=== PATIENT | female | born 1950 | race Caucasian/White ===

== ENCOUNTER → 2020-10-10 09:58 | Outpatient (CLI) | payer OTHER, SELFPAY ==
--- NOTE | ~2020-10-10 | DEXA_ITS ---
Bone Density Report Name: Carole Crowley Age: 69 Sex: Female Ethnicity: White Date of : 1950 Indication: osteopenia; parental hip fracture; height loss; postmenopausal Referring Provider: Marisol Curtis Study: Bone densitometry was performed. Exam Date: October 10, 2020 Accession number: [id number] Bone Density: Region BMD T-score Z-score Classification AP Spine (L1-L4) 0.854 -1.8 0.5 Osteopenia Femoral Neck (Left) 0.622 -2.0 -0.1 Osteopenia Total Hip (Left) 0.807 -1.1 0.5 Osteopenia Femoral Neck (Right) 0.607 -2.2 -0.3 Osteopenia Total Hip (Right) 0.776 -1.4 0.2 Osteopenia Total Hip Mean 0.792 -1.3 0.4 Osteopenia World Health Organization criteria for BMD impression classify patients as: Normal (T-score at or above -1.0), Osteopenia (T-score between -1.0 and -2.5), or Osteoporosis (T-score at or below -2.5). 10-year Fracture Risk(1): Major Osteoporotic Fracture 20% Hip Fracture 7.8% Reported Risk Factors: [place] (), Neck BMD=0.607, BMI=21.8, parental fracture (1) FRAX(R) Version 3.08. Fracture probability calculated for an untreated patient. Fracture probability may be lower if the patient has received treatment. Previous Exams: Region Exam Age BMD T-score BMD Change BMD Change Date g/cm2 vs Baseline vs Previous AP Spine(L1-L4) 10/10/2020 69 0.854 -1.8 0.059* 0.059* 06/30/2017 66 0.795 -2.3 Total Hip(Left) 10/10/2020 69 0.807 -1.1 0.040* 0.040* 06/30/2017 66 0.767 -1.4 Total Hip(Right) 10/10/2020 69 0.776 -1.4 0.024 0.024 06/30/2017 66 0.752 -1.6 *Denotes significance at 95% confidence level, LSC for AP Spine = 0.022 g/cm2, LSC for Total Hip = 0.027 g/cm2 Clinical Information Provided by Patient: Parent has had a hip fracture Has used the following medications: Prolia (i.e. denosumab) Patient maximum height was 61 Menopause Age: 52 Drinks caffeinated beverages Onset of menses at age 11 Number of children 2 Impression: The patient has low bone mass, based on the Right Femoral Neck T-score. The patient has an estimated ten-year risk of hip fracture of 7.8% and an estimated ten-year risk of major fracture of 20%, based on the WHO FRAX algorithm. The patient has risk factors, including: parental hip fracture. No significant bone loss was observed. Discussion: BONE DENSITY IS LOW AT ONE OR MORE SKELETAL SITES. THE PATIENT'S BMD AND CLINICAL RISK
== END ==
PROVIDERS: PCP Internal Medicine
DX: M81.0 Age-related osteoporosis without current pathological fracture (principal); M85.88 Other specified disorders of bone density and structure, other site; M85.852 Other specified disorders of bone density and structure, left thigh; M85.851 Other specified disorders of bone density and structure, right thigh
CPT/HCPCS: 77080

== ENCOUNTER 2021-03-11 16:24 | Outpatient (CLI) | payer OTHER, SELFPAY ==
--- NOTE | 2021-03-11 16:43 | ECG_ITS ---
Measurements Intervals [place] Rate: 64 P: 59 IL: 154 QRS: 43 QRSD: 81 T: 32 QT: 363 QTc: 376 Interpretive Statements SINUS RHYTHM NORMAL ECG Electronically Signed On 03-11-2021 20:13:22 CDT by Charan Izquierdo D.O.
== END 2021-03-11 16:25 | disposition home or self-care (01) ==
LOC: ANHCARD 16:33
PROVIDERS: PCP Internal Medicine
DX: Z01.810 Encounter for preprocedural cardiovascular examination (principal)
CPT/HCPCS: 93005

== ENCOUNTER → 2023-07-06 10:54 | Outpatient (CLI) | payer OTHER, SELFPAY ==
--- NOTE | ~2023-07-06 | DEXA_ITS ---
Bone Density Report Name: GARCÍA GAMING Age: 72 Sex: Female Ethnicity: White Date of : 1950 Indication: osteopenia; parental hip fracture; height loss;postmenopausal Referring Provider: Chung, Lynda Pollack Study: Bone densitometry was performed. Exam Date: July 06, 2023 Accession number: [id number] Bone Density: Region BMD T-score Z-score Classification AP Spine (L1-L4) 0.856 -1.7 0.6 Osteopenia Femoral Neck (Left) 0.651 -1.8 0.3 Osteopenia Total Hip (Left) 0.785 -1.3 0.5 Osteopenia Femoral Neck (Right) 0.611 -2.1 -0.1 Osteopenia Total Hip (Right) 0.767 -1.4 0.3 Osteopenia Total Hip Mean 0.776 -1.4 0.4 Osteopenia World Health Organization criteria for BMD impression classify patients as: Normal (T-score at or above -1.0), Osteopenia (T-score between -1.0 and -2.5), or Osteoporosis (T-score at or below -2.5). 10-year Fracture Risk(1): Major Osteoporotic Fracture 23% Hip Fracture 14% Reported Risk Factors: [place] (), Neck BMD=0.611, BMI=21.4, parental fracture (1) FRAX(R) Version 3.08. Fracture probability calculated for an untreated patient. Fracture probability may be lower if the patient has received treatment. Previous Exams: Region Exam Age BMD T-score BMD Change BMD Change Date g/cm2 vs Baseline vs Previous AP Spine(L1-L4) 07/06/2023 72 0.856 -1.7 0.061* 0.003 10/10/2020 69 0.854 -1.8 0.059* 0.059* 06/30/2017 66 0.795 -2.3 Total Hip(Left) 07/06/2023 72 0.785 -1.3 0.018 -0.022 10/10/2020 69 0.807 -1.1 0.040* 0.040* 06/30/2017 66 0.767 -1.4 Total Hip(Right) 07/06/2023 72 0.767 -1.4 0.015 -0.009 10/10/2020 69 0.776 -1.4 0.024 0.024 06/30/2017 66 0.752 -1.6 *Denotes significance at 95% confidence level, LSC for AP Spine = 0.022 g/cm2, LSC for Total Hip = 0.027 g/cm2 Clinical Information Provided by Patient: Parent has had a hip fracture Has used the following medications: Prolia (i.e. denosumab), Calcium, QUIT PROLIA IN SEPTEMBER 2022 Patient maximum height was 61.0 Menopause Age: 52 Drinks caffeinated beverages Onset of menses at age 11 Number of children 2 Impression: The patient has low bone mass, based on the Right Femoral Neck T-score. The patient has an estimated ten-year risk of hip fracture of 14% and an estimated ten-year risk of major fracture of 23%,
== END ==
PROVIDERS: PCP Internal Medicine; Visit Provider Internal Medicine
DX: Z78.0 Asymptomatic menopausal state (principal); M85.88 Other specified disorders of bone density and structure, other site; M85.852 Other specified disorders of bone density and structure, left thigh; M85.851 Other specified disorders of bone density and structure, right thigh
CPT/HCPCS: 77080

== ENCOUNTER 2023-10-15 15:36 | Emergency (ER) | payer OTHER, SELFPAY ==
--- NOTE | 2023-10-15 15:44 | ED.DENTAL ---
HPI - Dental/Oral General Chief complaint: Skin/Abscess/Foreign Body Stated complaint: cold sore, facial neuralgia Time Seen by Provider: 10/15/23 15:40 Source: patient Mode of arrival: ambulatory Limitations: no limitations History of Present Illness HPI Narrative: Twin is a 72-year-old female patient presenting to the clinic today with complaints of possible cold sore. She reports scented some a going on for a few days and she has been taking Valtrex that she has had prescribed but it is over 2 years old and she does not feel as though it is working. She is here requesting a refill of the Valtrex that she cannot see her doctor until Tuesday. History of shingles and oral herpes infection-is starting to have some discomfort to right side of her mouth as well as near her right eye. Related Data Home Medications Medication Instructions Recorded Confirmed fenofibrate nanocrystallized 145 145 mg PO DAILY 05/11/19 10/15/23 mg tablet (Tricor) Allergies Allergy/AdvReac Type Severity Reaction Status Date / Time Penicillins Allergy Severe Swelling Verified 10/15/23 16:01 of Lip/Tongue/Throat erythromycin base Allergy Intermediate VOMITING Verified 10/15/23 16:01 Sulfa (Sulfonamide Allergy Intermediate Vomiting Verified 10/15/23 16:01 Antibiotics) tramadol Allergy Intermediate Vomiting Verified 10/15/23 16:01 Review of Systems Review of Systems: Pertinent positives per HPI. Patient denies any fever, chills, headache, visual changes, dizziness, cough, runny nose, sore throat, shortness of breath, chest pain, palpitations, nausea, vomiting, diarrhea, constipation, abdominal pain, or any urinary issues. PMFSH Past Medical History Medical History Constipation Hypercholesterolemia Hypothyroidism Postmenopausal Urinary tract infection Comments At the time of my signature, I reviewed and agree with the nursing past medical, surgical, social, and family history. There is no relevant family history pertinent to the patient complaint. Exam Narrative: General: Well-developed, well nourished, in no apparent distress Head: Normocephalic, atraumatic Eyes: Pupils equally round and reactive to light bilaterally, EOM intact, sclera and conjunctive clear, no discharge, lids normal Ears: TMs intact and clear, ear canals clear, no drainage, grossly hearing normal. Nose: Nares patent, no discharge, no inflammation, no sinus tenderness. Mouth: Oropharynx without lesions or masses, good dentition, MMM. Cold sore to the right lower lip-tender to palpation without induration Neck: Supple, trachea midline, no enlargement of anterior or posterior cervical nodes, no thyroid masses or goiter palpable. Cardio: Regular rate and rhythm, s1 and s2 normal, no murmur appreciated. Resp: Clear to auscultation bilaterally anteriorly and posteriorly, no rhonchi, rales, wheezing or rubs Integumentary: [place], warm, and dry, intact without lesion, no rashes. Course Course Emergency Course: Portions of this record may have been created with voice recognition software. Level of Care: Express Care Visit Vital Signs Vital signs: Vital signs reviewed MDM - Dental/Oral MDM Narrative Medical decision making narrative: At the time of visit patient is resting comfortably on the exam table. Patient appears to be nontoxic. Plan: I suspect patient has a oral herpes infection. No sign herpes zoster this time but she is having herpetic like pain. Will send in prescription for Valtrex 1 g every 8 hours for 7 days and have her follow-up with her primary care doctor. She was instructed to go the emergency room if symptoms got worse. Supportive measures were discussed with the patient and they voiced understanding discharge instructions and agrees to treatment plan. Return precautions reviewed Differential Diagnosis Differential diagnosis: Likely gingival abscess, denta
[2023-10-15 15:52] VITALS: BP 179/96; PULSE 83; RESP 16; TEMP 37.1; O2SAT 100
== END 2023-10-15 16:04 | disposition home or self-care (01) ==
PROVIDERS: Emergency Provider Nurse Practitioner Family; PCP Internal Medicine
DX: B00.1 Herpesviral vesicular dermatitis (principal); E78.00 Pure hypercholesterolemia, unspecified; E03.9 Hypothyroidism, unspecified
CPT/HCPCS: 99213; G0463

== ENCOUNTER 2025-01-25 16:02 | Emergency (ER) | payer OTHER, SELFPAY ==
--- OUTSIDE RECORDS SUMMARY | 2025-01-25 16:05 | XMS_ITS | Clinical Summary ---
Author Organization [facility] Address [address] [place] [address] Phone Care Team Providers Care Instructor Of Nursing Name Role Phone Lynda Wilkes DO Primary Care Provider [phone]- [phone] Allergies Active Allergy Reactions Criticality Noted Date Comments Penicillins Swelling Low 06/27/2009 Medications TRIAMCINOLONE ACETONIDE (NASACORT NA) Administer in each nostril. Active Calcium Carbonate-Vitam in D2 1,200-400 mg-unit Oral Cap Take by mouth. Activ e levothyroxine (SYNTHROID) 75 mcg Oral tablet Take 75 mcg by mouth daily. Active SIMVASTATIN ORAL Take by mouth. Activ e OMEGA-3 FATTY ACIDS (FISH OIL ORAL) Take by mouth. Activ e MAGNESIUM CITRATE ORAL Take by mouth. Ac tive coenzyme Q10 (CO Q-10) Oral Cap Take 10 mg by mouth daily. Active Active Problems Patient Care Coordination No te Formatting of this note migh t be different from the original. Primary Care: Lynda Wilkes DO (General) Referring Provider: Lynda Wilkes DO [address] [place] [address] Other: Dr Angeline Anguiano Problem Noted Date Diagnosed Date Diffuse cystic mastopathy 11/07/2012 MVP (mitral valve prolapse) Asthma Hay fever Hyperlipidemia Family History Medical History Relation Name Comments Lung Cancer Father age 70's Stroke Maternal Grandfather Stroke Maternal Grandmother Cancer Mother skin Heart Disease Mother Breast Cancer Neg Hx Ovarian Cancer Neg Hx Uterine Cancer Neg Hx Relation Name Status Comments Father Maternal Grandfather Maternal Grandmother Mother Social History Tobacco Use Types Packs/Day Years Used Date Smoking Tobacco: Never Smokeless Tobacco: Never Tobacco Cessation:Counseling Given: No Alcohol Use Standard Drinks/Week Comments No 0 (1 standard drink = 0.6 oz pur e alcohol) Comments No Sex and Gender Information Value Date Recorded Sex Assigned at Not on file 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 Gender Identity Not on file Sexual Orientation Not on file Occupation Industry Job Start Date Job End Date Not on file Not on file Not on file Not on file Last Filed Vital Signs Vital Sign Reading Time Taken Comments Blood Pressure 118/75 02/03/2015 10:22 AM CDT Pulse 61 02/03/2015 10:22 AM CDT Temperature - - Respiratory Rate - - Oxygen Saturation - - Inhaled Oxygen Concentration - - Weight 49 kg (108 lb) 02/03/2015 10:22 AM CDT Height 154.9 cm (5' 1) 02/03/2015 10:22 AM CDT Body Mass Index 20.41 02/03/2015 10:22 AM CDT Plan of Treatment Health Maintenance Due Date Last Done Comments DTAP/TDAP/TD VACCINES (1 - Tdap) 11/02/1967 PNEUMOCOCCAL VACCINE 50+ YEARS (1 of 2 - PCV) 11/01/18 66 ZOSTER VACCINE (1 of 2) 1998 OSTEOPOROSIS SCREENING 10/11/2019 10/10/2014 RSV VACCINE (60+ or ) (1 - 1-dose 75+ series) 11/02/2023 INFLUENZA VACCINE (#1) 2025 Procedures Procedure Name Priority Date/Time Associated Diagnosis Comments XR DEXA BONE DENSITY 2 SITES Routine 10/10/2014 from Last 3 Months or Most Recently Relevant to Health Maintenance Results * XR DEXA BONE DENSITY 2 SITES (10/10/2014) Anatomical Region Laterality Modality Other us Lynda Wilkes DO DIAGNOSTIC IMAGING ORDERAB LES Edited Result - Final from Last 3 Months or Most Recently Relevant to Health Maintenance Insurance [facility] MCR Care Teams Instructor Of Nursing Relationship Specialty Start Date End Date Lynda Wilkes DO [address] [place] [address] PCP - General Internal Medicine 01/28/14
--- OUTSIDE RECORDS SUMMARY | 2025-01-25 16:05 | XMS_ITS | Clinical Summary ---
Author Organization [facility] Address [address] [place] [address] Care Team Providers Care Clinical Rehabilitation Aide Name Role Phone Lynda Wilkes DO Primary Care Provider +1- [phone] Allergies Active Allergy Reactions Criticality Noted Date Comments Penicillins Anaphylaxis High 05/19/2021 Shrimp Rash Medium 05/19/2021 Medications vitamin B complex (B COMPLEX 1 ORAL) 1 tablet Acti ve omega 0-gks-gal-fish oil (Fish OiL) 100-160-1,000 mg capsule Take 1 tablet by mouth Active MAGNESIUM CITRATE ORAL Take 1 Dose by mouth Active Lactobac no.41/Bifidobact no.7 (PROBIOTIC-10 ORAL) Take 1 tablet by mouth Active fenofibrate nanocrystallized (TRICOR) 145 mg tablet 1 tablet 1 Active Prolia 60 mg/mL syringe Inject 60 mg under the skin 1 Active mupirocin (BACTROBAN) 2 % ointment 1 Active valACYclovir (VALTREX) 1 gram tablet 1 Active Active Problems Problem Noted Date Diagnosed Date COVID 05/18/2021 Surgical History Surgery Date Site/Laterality Comments BREAST BIOPSY Left Social History Tobacco Use Types Packs/Day Years Used Date Smoking Tobacco: Never Assessed Comments No Sex and Gender Information Value Date Recorded Sex Assigned at Not on file Legal Sex Female 1:37 AM SCOREKEEPER Gender Identity Not on file Sexual Orientation Not on file Obstetrics History Para Term AB IAB SAB Ectopic Multiple Livin g Live Births 2 2 2 Date Outcome GA Total Labor Labor/2nd/3rd Weight Sex Type Anes PTL Luisa A1 A5 Name Clin Term Term Last Filed Vital Signs Vital Sign Reading Time Taken Comments Blood Pressure 149/76 05/19/2021 10:40 AM SCOREKEEPER Pulse 61 05/19/2021 10:40 AM SCOREKEEPER Temperature 36.5 C (97.7 F) 05/19/2021 10:40 AM SCOREKEEPER Respiratory Rate 20 05/19/2021 10:40 AM SCOREKEEPER Oxygen Saturation 100% 05/19/2021 10:40 AM SCOREKEEPER Inhaled Oxygen Concentration - - Weight 50.3 kg (111 lb) 05/19/2021 8:44 AM SCOREKEEPER Height 152.4 cm (5') 05/19/2021 8:44 AM SCOREKEEPER Body Mass Index 21.68 05/19/2021 8:44 AM SCOREKEEPER Plan of Treatment Health Maintenance Due Date Last Done Comments Depression Screening 1950 Fall Risk Assessment 1950 Hepatitis C Screening 1950 DTaP/Tdap/Td Vaccine (1 - Tdap) 11/02/1959 Hepatitis B Screening 1966 Well Visit 65+ 2013 Pneumococcal vaccine 65+ (2 of 2 - PPSV23, PCV20, or PCV21) 09/06/2016 07/12/2016 Osteoporosis Screening-Bone Density Scan 10/10/2016 10/10/2014, 10/10/2014 Covid-19 Vaccine (3 - Modern a risk series) 08/29/2020 08/01/2020, 07/03/2020 Influenza Vaccine (#1) 2025 , 04/04/2019, 02/20/2018, Additional history exists Zoster Vaccine Completed 06/26/2018, 04/22/2018 Breast Cancer Screening-Mammogram Discontinued 02/02/2024, 01/12/2023, 10/09/2021, Additional history exists Procedures Procedure Name Priority Date/Time Associated Diagnosis Comments SCREENING MAMMOGRAM BILATERAL W PEDRO Schedule Routine, Read Routine (OP Routine) 02/02/2024 9:14 AM CDT Screening mammogram, encounter for DEXA AXIAL SKELETON BONE DENSITY 1 OR MORE SITES Routine 10/10/2014 1:56 PM CDT from Last 3 Months or Most Recently Relevant to Health Maintenance Results * Screening Mammogram Bilateral W Pedro (02/02/2024 9:14 AM CDT) Anatomical Region Laterality Modality Breast Bilateral Mammography Impressions 02/02/2024 9:42 AM CDT BI-RADS ATLAS category (overall): 2 - Benign There is no mammographic evidence of malignancy. A 1 year screening mammogram is recommended. The patient has been or will be contacted. We recommend annual screening mammography for women at average risk of breast cancer beginning at age 40, based on guidelines of the [employer] (ACR Practice Parameter for the Performance of Screening and Diagnostic Mammography) and [employer]. For women with and elevated risk of breast cancer, please refer to the ACR Practice Parameter for specific screening recommendations. The patient will be entered into a reminder system with a target due date of 1 year for her next screening exam. Narrative 02/02/2024 9:42 AM CDT Screening Mammogram Bilateral W Pedro: 02/02/24 The study was acquired using full field digital technology and interpreted from soft copy. 2D digital mammographic views, as well as 3D digital tomosynthesis were performed in the CC and MLO projections. CLINICAL: Screening mammogram, encounter for. No relevant medical history has been documented for this patient. No known family history of breast cancer. COMPARISONS: 02/04/2023 Diagnostic Mammogram Left W Pedro 01/12/2023 Screening Mammogram Bilateral W Pedro 10/09/2021 Screening Mammogram Bilateral W Pedro 06/16/2020 Screening Mammogram Bilateral W Pedro 02/08/2019 Screening Mammogram Bilateral W Pedro 01/09/2018 Screening Mammogram 2D Bilateral 12/23/2016 Screening Mammogram Bilateral W Pedro 09/30/2016 Diagnostic Mammogram Left W Pedro 09/30/2016 US Breast Left Complete 12/01/2015 Screening Mammogram Bilateral W Pedro 10/21/2014 Screening Mammogram Bilateral W Pedro 10/10/2014 SCREENING MAMMOGRAM BILATERAL W PEDRO BREAST TISSUE: The breasts are extremely dense, which lowers the sensitivity of mammography. FINDINGS: There are unchanged benign microcalcifications in both breasts. Benign postoperative architectural distortion in the left breast. There is no new suspicious finding in either breast on mammogram. us Self Screening Mammogram IMG MAMMO PROCEDURES Fi nal Result * Dexa Axial Skeleton Bone Density 1 or 2 Site (10/10/2014 1:56 PM CDT) Anatomical Region Laterality Modality Body N/A Radiographic Kendra ging 10/10/2014 1:56 PM CDT Impressions 10/10/2014 3:49 PM CDT Osteoporosis (lowest T-score -2.8 at the left femoral neck). THIS IS AN ELECTRONICALLY VERIFIED REPORT 10/10/2014 3:45 PM: Maurizio Ibarra M.D. Maurizio Ibarra M.D. MD: 03:45 PM 03:45 PM [facility] [EOD] Narrative 10/10/2014 3:49 PM CDT EXAMINATION: Bone Density Study (DEXA) HISTORY: Post menopausal woman with clinical concern for low bone mineral density. COMPARISON: None available TECHNIQUE: Dual-energy X-ray absorptiometry of the lumbar spine and left hip was performed. FINDINGS: Lumbar spine (from L1 through L4): The bone mineral density is 0.841 gm / cm sq. The T-score is -1 point. The percentage of young normal mean is 80%. Total Left Hip: The bone mineral density is 0.774 gm / cm sq. The T-score is -1.4. The percentage of young normal mean is 82%. Left Femoral Neck: The bone mineral density is 0.543 g/cm sq. The T-score is -2.8. The percentage of young normal mean is 64%. Procedure Note Provider, MD Vijay - 10/28/2020 EXAMINATION: Bone Density Study (DEXA) HISTORY: Post menopausal woman with clinical concern for low bone mineral density. COMPARISON: None available TECHNIQUE: Dual-energy X-ray absorptiometry of the lumbar spine and lefthip was performed. FINDINGS: Lumbar spine (from L1 through L4): The bone mineral density is 0.841 gm / cm sq. The T-score is -1 point. The percentage of young normal mean is 80%. Total Left Hip: The bone mineral density is 0.774 gm / cm sq. The T-score is -1.4. The percentage of young normal mean is 82%. Left Femoral Neck: The bone mineral density is 0.543 g/cm sq. The T-score is -2.8. The percentage of young normal mean is 64%. IMPRESSION: Osteoporosis (lowest T-score -2.8 at the left femoral neck). THIS IS AN ELECTRONICALLY VERIFIED REPORT 10/10/2014 3:45 PM: Maurizio Ibarra M.D. Maurizio Ibarra M.D. MD: 03:45 PM 03:45 PM [facility] [EOD] Lynda Wilkes DO IMG DXA PROCEDURES Final R esult from Last 3 Months or Most Recently Relevant to Health Maintenance Insurance [facility] Care Teams Clinical Rehabilitation Aide Relationship Specialty Start Date End Date Lynda Wilkes DO PCP - General 01/22/19
--- OUTSIDE RECORDS SUMMARY | 2025-01-25 16:05 | XMS_ITS | Encounter Summary ---
Author Organization [facility] Address [address] [place] [address] Care Team Providers Care R&D Engineer Name Role Phone Patti Mejia MD Primary Care Provider Encounter Details Date Type Department Care Team (Late st Contact Info) Description 10/01/2024 Lab Requisition [facility] - DermPath Lab [address], [place] [id number] Tunde Lyle MD [facility] DERMATOLOGY [address] [place] [phone] Neoplasm of uncertain behavior of skin Social History Tobacco Use Types Packs/Day Years Used Date Smoking Tobacco: Never Assessed Comments Unknown Sex and Gender Information Value Date Recorded Sex Assigned at Not on file Legal Sex Female 7: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 Gender Identity Not on file Sexual Orientation Not on file documented as of this encounter Plan of Treatment Not on file documented as of this encounter Procedures Procedure Name Priority Date/Time Associated Diagnosis Comments DERMATOPATHOLOGY Routine 09/28/2024 9:04 AM CDT Neoplasm of uncertain behavior of skin documented in this encounter Results * DERMATOPATHOLOGY (09/28/2024 9:04 AM CDT) Case Report Dermatopathology Report Case: [id number] Authorizing Provider: Tunde Lyle MD Collected: 09/28/2024 09:04 AM Ordering Location: [facility] - Received: 10/02/2024 06:50 AM DermPath Lab Pathologist: Letty Georges MD Specimen: Skin, right upper cutaneous lip 2:47 PM CDT DERMATOPATHOLOGY LABORATORY Final Diagnosis Specimen A. SKIN, right upper cutaneous lip: HYPERPLASTIC (HYPERTROPHIC) ACTINIC KERATOSIS ARISING IN A BENIGN VERRUCOUS KERATOSIS (L57.0) 2:47 PM CDT DERMATOPATHOLOGY LABORATORY at 1447 CDT Clinical History Verruca Vulgaris vs SCC 2:47 PM CDT DERMATOPATHOLOGY LABORATORY Gross Description Specimen A: Received is one formalin filled container labeled with the patient's name and designated right upper cutaneous lip. The specimen consists of a shave biopsy measuring 4x4x2 mm. Jar 0. 2:47 PM CDT DERMATOPATHOLOGY LABORATORY Microscopic Description Specimen A. SKIN, right upper cutaneous lip: There is hyperkeratosis alternating with parakeratosis. There is epidermal hyperplasia with disorderly maturation of keratinocytes with nuclear pleomorphism confined to the lower half of the epidermis. There is central hyperkeratosis, papillomatosis, hypergranulosis, and acanthosis. 2:47 PM CDT DERMATOPATHOLOGY LABORATORY Disclaimer An external and internal positive and negative controls are appropriate for the histochemical, immunohistochemical and immunofluorescence stain(s) in this case (if any), except where stated explicitly. The performance characteristics of the stain(s) cited in this report were developed and its performance characteristic determined by the Dermatopathology Laboratory at [facility], directed by Dr. Milana Tapia. These tests need not be, and therefore are not, approved by the [place] Food and Drug Administration. The tests are used for clinical purposes. Billing Codes Specimen Charges Stain Charges 13989 1 2:47 PM CDT DERMATOPATHOLOGY LABORATORY Embedded Images 2:47 PM CDT DERMATOPATHOLOGY LABORATORY Pathology/Cytolo gy TISSUE SPECIMEN FROM SKIN / Unknown 09/28/2024 9:04 AM CDT 10/02/2024 6:50 AM CDT us Tunde Lyle MD LAB - PATHOLOGY/CYTOLOGY [facility] Final Result DERMATOPATHOLOGY LABORATORY [facility] - Department of Dermatology [facility] [address] [place] [address], [address] [phone] documented in this encounter Visit Diagnoses Diagnosis Neoplasm of uncertain behavior of skin documented in this encounter Care Teams R&D Engineer Relationship Specialty Start Date End Date Patti Mejia MD PCP - General 08/20/08 documented as of this encounter
--- OUTSIDE RECORDS SUMMARY | 2025-01-25 16:05 | XMS_ITS | Clinical Summary ---
Author Organization [facility] Address [address] [place] [address] Care Team Providers Care Customer Trainer Name Role Phone Royal Juarez DO Primary Care Provider Encounters Date Type Department Care Team Description 01/11/2025 10:45 AM CDT Telephone [facility] [address] [address] Royal Juarez DO Holter Monitor 01/08/2025 Orders Only [facility] [address] [address] Royal Juarez DO from Last 3 Months Social History Tobacco Use Types Packs/Day Years Used Date Smoking Tobacco: Never Assessed Comments Unknown Sex and Gender Information Value Date Recorded Sex Assigned at Female 10/22/2024 9:48 AM CDT 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 Gender Identity Not on file Sexual Orientation Not on file Plan of Treatment Health Maintenance Due Date Last Done Comments Hepatitis C 1968 Annual Medicare Wellness Visit 2013 Pneumococcal Vaccine: 50+ Years (2 of 2 - PPSV23) 07/12/2017 07/12/2016 DTaP, Tdap and Td Vaccines ( 2 - Td or Tdap) 03/09/2021 03/09/2011 RSV Immunization or 60+ Years (1 - 1-dose 75+ series) 11/02/2023 COVID-19 Vaccine (3 - 2023-2 5 season) 2024 08/01/2020, 07/03/2020 Dexa Scan (General) Completed 10/10/2014, 10/10/2014, 10/10/2014 Zoster Vaccines Completed 06/26/2018, 04/22/2018 Meningococcal B Vaccine Aged Out No l onger eligible based on patient's age to complete this topic Meningococcal Vaccine Aged Out No daly ariadna eligible based on patient's age to complete this topic RSV Immunizations Under 20 Months Aged Out No longer eligible b ased on patient's age to complete this topic Procedures Procedure Name Priority Date/Time Associated Diagnosis Comments XTRNL ECG REC<48 HRS RECORDING SCAN A/R R&I Routine 01/16/2025 3:35 PM CDT Palpitations from Last 3 Months Results * Short Term Holter 24 or 48 Hours (01/16/2025 3:35 PM CDT) Narrative [facility] - 01/16/2025 3:35 PM CDT [image] [place] [id number] RISK CONTROL CONSULTANT REPORT PATIENT NAME: Carole Crowley : 1950 DATE OF TESTIN01/13/2025 until 01/15/2025 TYPE OF MONITOR: 48 Hour Holter PCP: ROYAL JUAREZ DO INTERPRETING RODEO CLOWN: MAUREEN SINGLETARY M.D. INDICATION: Palpitations FINDINGS: Carole Crowley underwent monitoring for a total of 48 hours, of which 1 days, 22 hours and 25 minutes or 97% was considered diagnostic. Baseline rhythm: The baseline rhythm was normal sinus rhythm with heart rates ranging between 59 and 125 beats per minute, with average rate of 74 beats per minute. 0% of the time was spent in bradycardia. 3% of the time was spent in tachycardia. Sinus node function: Sinus node function was normal with no evidence of severe bradycardia or pauses longer than 3 seconds. A-V conduction: A-V conduction was normal with no evidence of significant A-V block. Atrial arrhythmias: There were rare PACs, a total of 77 PACs over 48 hours, which accounted for less than 1% of total heartbeats. 1 episodes of supraventricular tachycardia with the longest lasting 2.3 seconds or 4 beats at a rate of 140 bpm. Atrial fibrillation was not observed. Atrial flutter was not observed. Ventricular arrhythmias: There were rare PVCs, a total of 33 PVCs over 48 hours which accounted for less than 1% of total heart beats. No ventricular tachycardia was observed. Symptoms: The patient reported no symptoms. 1 manually triggered event demonstrated sinus rhythm at 78 bpm with artifact. SUMMARY: Sinus rhythm at an average of 74 bpm was noted. Rare PACs with a <1 % burden seen. 1 episode of SVT lasting 2.3 seconds seen Rare PVCs with a <1 % burden noted. No symptoms were recorded. 1 manually triggered event demonstrated sinus rhythm at 78 bpm. us Royal Juarez DO PROCEDURES Final Result [facility] from Last 3 Months Insurance [employer] Care Teams Customer Trainer Relationship Specialty Start Date End Date Royal Juarez DO [address] [place] [phone] PCP - General INTERNAL MEDICINE 04/24/24
--- OUTSIDE RECORDS SUMMARY | 2025-01-25 16:05 | XMS_ITS | Clinical Summary ---
Author Organization [facility] Address [address] [place] [address] Care Team Providers Care Press Tender Name Role Phone Patti Mejia MD Primary Care Provider [phone] Source Comments [facility],non-owned Affiliates and Associated Physician Practices is amultiple site organization consisting of ambulatory clinics and hospital sitesin [place], [place], [place] and [place]. This disclosure is being madepursuant to the Care Everywhere program and may not contain all information available regarding this patient. 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 Gender Identity Not on file Sexual Orientation Not on file Plan of Treatment Health Maintenance Due Date Last Done Comments BONE DENSITY TESTING 1950 MEDICARE AWV 12 MONTHS 1950 HEPATITIS C SCREENING 10/28/1966 DTAP/TDAP/TD VACCINES (1 - Tdap) 11/02/1967 PNEUMOCOCCAL VACCINE 50+ (1 of 1 - PCV) 1998 ZOSTER VACCINE (1 of 2) 1998 Respiratory Syncytial Virus (RSV) Vaccine Pt: or over 60 yrs (1 - 1-dose 75+ series) 11/02/2023 COVID-19 VACCINE (1 - 2023-2 5 season) 2024 DEPRESSION SCREENING 06/13/2024 INFLUENZA VACCINE (#1) 2025 HEPATITIS B VACCINE Aged Out No longe r eligible based on patient's age to complete this topic HIB VACCINE Aged Out No longer eligi ble based on patient's age to complete this topic HPV VACCINE Aged Out No longer eligi ble based on patient's age to complete this topic MENINGOCOCCAL (Group B) VACC INE SHARED DECISION-MAKING Aged Out No longer eligibl e based on patient's age to complete this topic MENINGOCOCCAL GROUPS A/C/Y/W VACCINE Aged Out No longer eligible b ased on patient's age to complete this topic Insurance E[employer]ENCE MEDICARE ESSENCE MEDICARE Care Teams Press Tender Relationship Specialty Start Date End Date Patti Mejia MD [facility] - General 08/20/08
--- OUTSIDE RECORDS SUMMARY | 2025-01-25 16:05 | XMS_ITS | Patient Health Record ---
Author Organization [facility] Address [address] [place] [address] Support Name Relationship Address Phone Carole Crowley Guarantor Unknown [phone] Reason For Referral No Information Medications Medication SIG (Take, Route, Frequency, Duration) Notes Start Date End Date Status Simvastatin 20 MG TAKE ONE TABLET BY M OUTH EVERY DAY Oral 05/01/2013 Active Metrogel 1 % APPLY TOPICALLY TO AFFECTED AREA EVERY DAY External 05/01/2013 Active Levothyroxine Sodium 50 MCG TAKE ONE TAB LET BY MOUTH EVERY DAY Oral 07/25/2013 Active Immunizations Vaccine Route Administration Date Status Comme nts Infuenza, trivalent, recombinant, preservative free Unknown 04/21/2007 Administered migrated LegPatid= [id number] Date=04/12/2001 Vac= Influenza Tdap IM Intramuscular 03/09/2011 Administered Problems Problem Type SNOMED Code ICD Code Onset Dates Problem Status W/U Status Risk Notes Problem Shortness of breath (800647916) Shortness of breath (786.05) 2013 Active confirmed 09/14/2013 normal exam, Stress test negative Problem Hypothyroidism (88519832) Hypothyroidi sm, unspecified (E03.9) 2004 Active confirmed 09/08/2012 - TSH normal Problem Rheumatic mitral ai ve disease (56184306) Rheumatic mitral valve disease, unspecified (I05.9) 2007 Active confirmed 03/09/2011 - Echo and stress test, MVP Problem Non-neoplastic nevus (183879920) Nevus, non-neoplast ic (I78.1) Active confirmed Problem Irritable bowel syndrome (35299793) Irritable bowel syndrome without diarrhea (K58.9) 2004 Active confirmed 03/09/2011 - constipation pre-dominant Problem Rosacea (087136737) Rosacea, unspecified (L71.9) 2010 Active confirmed Problem Low back pain (115366051) Low back pain (M54.5) 2004 Active confirmed 09/08/2012 - comes and goes 03/09/2011 - history of right sciatica, managed with exercise. No surgery or injections, No mri Problem Disorder of bone (02347774) Other specified disorders of bone density and structure, unspecified site (M85.80) Active confirmed Problem Fatigue (81828807) Other fatigue (R53.83) 2004 Active confirmed 03/09/2011 - for years, better with levothyroxine Problem Pure hypercholesterolemia (420351495) Pure hypercholest erolemia, unspecified (E78.00) Active confirmed 09/08/2012 - controlled 191, 88, 61 none Plan Of Treatment No Information Insurance Providers Payer Name Payer Address Payer Phone Subscriber Number Group Number Insured Name Patient Relationship to Insured Coverage Start Date Coverage End Date [place] [address] [place] [address] [id number] Carole Crowley Self - patient is the insured 4 [employer] Ppo [address] [place] [address] [id number] Daniel Crowley Spouse - patient is the spouse of the insured 1 [employer] Ppo [address] [place] [address] [id number] Carline Carole Self - patient is the insured 3 Medical (General) History Surgical History Surgery Date(Month/Year) ; 2011-03-08 Carpal tunnel release; 2011-03-08 Breast biopsy: abnormal cell s and followed by Dr Anguiano, Date of Procedure: 1998; 2011-03-08 herniorrhaphy; 2011-03-08 T&A; 2011-03-08 Bladder Surgery: Dr Efrem Granados, pre-cancerous cells on cysto, Date of Procedure: 2003; 2011-03-09
--- OUTSIDE RECORDS SUMMARY | 2025-01-25 16:05 | XMS_ITS | Patient Health Record ---
Author Organization [facility] Address [address] [place], [place] [address] Care Team Providers Care Utilization Engineer Name Role Phone MICHAEL HERRERA Unavailable [phone] Lynda Wilkes Unavailable Unavailable Reason For Referral No Information Medications Medication SIG (Take, Route, Frequency, Duration) Notes Start Date End Date Status polyethylene glycol 3350 30192 MG Powder for Oral Solution [ClearLax] ORAL polyethylene glycol 3350 56153 MG Powder for Oral Solution [ClearLax]Original Medicationpolyethylene glycol 3350 23606 MG Powder for Oral Solution [ClearLax] *Reorder from Hotel Tablet Themes for eRx and Interaction Alert 5 Active levothyroxine sodium 0.1 MG Oral Tablet ORAL levothyroxine sodium 0.1 MG Oral TabletOriginal Medicationlevothyroxine sodium 0.1 MG Oral Tablet *Reorder from Hotel Tablet Themes for eRx and Interaction Alerts* 5 Active ciclopirox 80 MG/ML Topical Solution [Penlac Nail Lacquer] CUTANEOUS ciclopirox 80 MG/ML Topical Solution [[place]lac Nail Lacquer]Original Medicationciclopirox 80 MG/ML Topical Solution [[place]lac Nail Lacquer] *Reorder from Hotel Tablet Themes for eRx and Interaction Alerts* 5 Active Plan Of Treatment No Information Insurance Providers Payer Name Payer Address Payer Phone Subscriber Number Group Number Insured Name Patient Relationship to Insured Coverage Start Date Coverage End Date [facility] [employer]. [address] [place] [id number] GARCÍA GAMING Self - patient is the insured
[2025-01-25 16:06] VITALS: BP 167/105; PULSE 83; RESP 16; TEMP 37; O2SAT 100
[2025-01-25] MEDS: LIDOCAINE 1% LOCAL INJ 10 ML VIAL INFILTRATE (16:45)
--- OUTSIDE RECORDS SUMMARY | 2025-01-25 16:45 | XMS_ITS | Clinical Summary ---
Author Organization [facility] Address [address] [place] [address] Care Team Providers Care Brush Filler Hand Name Role Phone Patti Mejia MD Primary Care Provider Source Comments [facility],non-owned Affiliates and Associated Physician Practices is amultiple site organization consisting of ambulatory clinics and hospital sitesin [place], [place], [place] and [place]. This disclosure is being madepursuant to the Care Everywhere program and may not contain all information available regarding this patient. 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
--- OUTSIDE RECORDS SUMMARY | 2025-01-25 16:45 | XMS_ITS | Encounter Summary ---
Author Organization [facility] Address [address] [place] [address] Care Team Providers Care Ecmo Specialist Name Role Phone Patti Mejia MD Primary Care Provider Encounter Details Date Type Department Care Team (Late st Contact Info) Description 10/01/2024 Lab Requisition [facility] - DermPath Lab [address] [place] [id number] Tunde Lyle MD [facility] DERMATOLOGY [address] [place] [phone] Neoplasm of uncertain behavior of skin Social History Tobacco Use Types Packs/Day Years Used Date Smoking Tobacco: Never Assessed Comments Unknown Sex and Gender Information Value Date Recorded Sex Assigned at Not on file 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 Gender Identity Not on file Sexual Orientation Not on file documented as of this encounter Plan of Treatment Not on file documented as of this encounter Procedures Procedure Name Priority Date/Time Associated Diagnosis Comments DERMATOPATHOLOGY Routine 09/28/2024 9:04 AM CDT Neoplasm of uncertain behavior of skin documented in this encounter Results * DERMATOPATHOLOGY (09/28/2024 9:04 AM CDT) Case Report Dermatopathology Report Case: [id number] Authorizing Provider: Tunde Lyle MD Collected: 09/28/2024 09:04 AM Ordering Location: [facility] - Received: 10/02/2024 06:50 AM DermPath Lab Pathologist: Letty Georgse MD Specimen: Skin, right upper cutaneous lip [...] characteristic determined by the Dermatopathology Laboratory at [facility], directed by Dr. Milana Tapia. These tests need not be, and therefore are not, approved by the [place] Food and Drug Administration. The tests are used for clinical purposes. Billing Codes Specimen Charges Stain Charges 64974 1 2:47 PM CDT DERMATOPATHOLOGY LABORATORY Embedded Images 2:47 PM CDT DERMATOPATHOLOGY LABORATORY Pathology/Cytolo gy TISSUE SPECIMEN FROM SKIN / Unknown 09/28/2024 9:04 AM CDT 10/02/2024 6:50 AM CDT us Tunde Lyle MD LAB - PATHOLOGY/CYTOLOGY [facility] Final Result DERMATOPATHOLOGY LABORATORY [facility] - Department of Dermatology [facility] [address] [place] [address], [address] [phone] documented in this encounter Visit Diagnoses Diagnosis Neoplasm of uncertain behavior of skin documented in this encounter Care Teams Ecmo Specialist Relationship Specialty Start Date End Date Patti Mejia MD PCP - General 08/20/08 documented as of this encounter
--- OUTSIDE RECORDS SUMMARY | 2025-01-25 16:45 | XMS_ITS | Clinical Summary ---
Author Organization [facility] Address [address] [place] [address] Care Team Providers Care Wort Extractor Name Role Phone Royal Juarez DO Primary Care Provider Encounters Date Type Department Care Team Description 01/11/2025 10:45 AM CDT Telephone [facility] [address] [address] Royal Juarez DO Holter Monitor 01/08/2025 Orders Only [facility] [address] [address] Royal Juarez DO from Last 3 Months Social History Tobacco Use Types Packs/Day Years Used Date Smoking Tobacco: Never Assessed Comments Unknown Sex and Gender Information Value Date Recorded Sex Assigned at Female 10/22/2024 9:48 AM CDT 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 INDICATION: Palpitations FINDINGS: Carole [...] Royal Juarez DO PROCEDURES Final Result [facility] from Last 3 Months Insurance ESSENCE Care Teams Wort Extractor Relationship Specialty Start Date End Date Royal Juarez DO [address] [place] [phone] PCP - General INTERNAL MEDICINE 04/24/24
--- OUTSIDE RECORDS SUMMARY | 2025-01-25 16:45 | XMS_ITS | Clinical Summary ---
Author Organization [facility] Address [address] [place] [address] Phone Care Team Providers Care Electrical Prospecting Engineer Name Role Phone Lynda Wilkes DO Primary Care Provider [phone] Allergies Active Allergy Reactions Criticality Noted Date [...] DO (General) Referring Provider: Lynda Wilkes DO [address] [place] [address] Other: Dr Angeline Anguiano Problem Noted Date [...] on file Legal Sex Female 3:04 AM FELL CUTTER Gender Identity Not on file Sexual Orientation [...] Most Recently Relevant to Health Maintenance Insurance [facility] MCR Care Teams Electrical Prospecting Engineer Relationship Specialty Start Date End Date Lynda Wilkes DO [address] [place] [phone] PCP - General Internal Medicine 01/28/14
--- OUTSIDE RECORDS SUMMARY | 2025-01-25 16:45 | XMS_ITS | Clinical Summary ---
Author Organization [facility] Address [address] [place] [address] Care Team Providers Care Big Data Engineer Name Role Phone Lynda Wilkes DO Primary Care Provider [phone] Allergies Active Allergy Reactions Criticality Noted Date Comments Penicillins Anaphylaxis High 05/19/2021 Shrimp Rash Medium 05/19/2021 Medications vitamin B complex (B COMPLEX 1 ORAL) 1 tablet Acti ve omega 1-rgp-bcx-fish oil (Fish OiL) 100-160-1,000 mg capsule Take [...] on file Legal Sex Female 1:37 AM OPERATIVE SUPERVISOR Gender Identity Not on file Sexual Orientation Not on file Obstetrics History Para Term AB IAB SAB Ectopic Multiple Livin g Live Births 2 2 2 Date Outcome GA Total Labor Labor/2nd/3rd Weight Sex Type Anes PTL Luisa A1 A5 Name Clin Term Term Last Filed Vital Signs Vital Sign Reading Time Taken Comments Blood Pressure 149/76 05/19/2021 10:40 AM OPERATIVE SUPERVISOR Pulse 61 05/19/2021 10:40 AM OPERATIVE SUPERVISOR Temperature 36.5 C (97.7 F) 05/19/2021 10:40 AM OPERATIVE SUPERVISOR Respiratory Rate 20 05/19/2021 10:40 AM OPERATIVE SUPERVISOR Oxygen Saturation 100% 05/19/2021 10:40 AM OPERATIVE SUPERVISOR Inhaled Oxygen Concentration - - Weight 50.3 kg (111 lb) 05/19/2021 8:44 AM OPERATIVE SUPERVISOR Height 152.4 cm (5') 05/19/2021 8:44 AM OPERATIVE SUPERVISOR Body Mass Index 21.68 05/19/2021 8:44 AM OPERATIVE SUPERVISOR Plan of Treatment Health Maintenance Due Date [...] age 40, based on guidelines of the [place] [employer] (ACR Practice Parameter for the Performance of Screening and Diagnostic Mammography) and [place] [employer]. For women [...] Ibarra M.D. MD: 03:45 PM 03:45 PM [facility] [E[facility]] Narrative 10/10/2014 3:49 PM CDT [...] Ibarra M.D. MD: 03:45 PM 03:45 PM [facility] [EOD] Lynda Wilkes DO IMG DXA PROCEDURES Final R esult from Last 3 Months or Most Recently Relevant to Health Maintenance Insurance [facility] Care Teams Big Data Engineer Relationship Specialty Start Date End Date Lynda Wilkes DO PCP - General 01/22/19
--- NOTE | 2025-01-25 16:55 | ED.GENADULT ---
HPI - General Adult General Chief complaint: Wound/Laceration Stated complaint: wound Time Seen by Provider: 01/25/25 16:30 History of Present Illness HPI narrative: This is a pleasant 74-year-old female who sliced her finger open trying to cut onions. She sliced a thin flap off the pad of her middle finger on her right hand. No other injuries. On Related Data Home Medications ?Medication ?Instructions ?Recorded ?Confirmed ?Last Taken ?Type fenofibrate nanocrystallized 145 145 mg PO DAILY 05/11/19 10/15/23 Unknown History mg tablet (Tricor) Allergies Allergy/AdvReac Type Severity Reaction Status Date / Time Penicillins Allergy Severe Swelling Verified 10/15/23 16:01 of Lip/Tongue/Throat erythromycin base Allergy Intermediate VOMITING Verified 10/15/23 16:01 Sulfa (Sulfonamide Allergy Intermediate Vomiting Verified 10/15/23 16:01 Antibiotics) tramadol Allergy Intermediate Vomiting Verified 10/15/23 16:01 [facility] Past Medical History Medical History Constipation Hypercholesterolemia Hypothyroidism Postmenopausal Urinary tract infection Exam Narrative: APPEARANCE: No apparent distress. Head: atraumatic. EYES: EOMI, NOSE: Atraumatic NECK: Trachea midline RESPIRATORY: No increased rate of breathing CARDIOVASCULAR: RRR, ABDOMINAL: Non-distended MUSCULOSKELETAl: No obvious deformities NEURO: Alert. Moving 4/4 extremities SKIN:: Small flap laceration to the pad of her the 3rd digit on her right hand PSYCHIATRIC: Normal affect Course Vital Signs Vital signs: Vital Signs Temperature 98.6 F 01/25/25 16:06 Pulse Rate 83 01/25/25 16:06 Respiratory Rate 16 01/25/25 16:06 Blood Pressure 167/105 H 01/25/25 16:06 Pulse Oximetry 100 01/25/25 16:06 Oxygen Delivery Room Air 01/25/25 16:06 Temperature 98.6 F 01/25/25 16:06 Pulse Rate 83 01/25/25 16:06 Respiratory Rate 16 01/25/25 16:06 Blood Pressure 167/105 H 01/25/25 16:06 Pulse Oximetry 100 01/25/25 16:06 Oxygen Delivery Room Air 01/25/25 16:06 Procedures Laceration Laceration 1: Date: 01/25/25 Site: hand Side (If applicable): right Size (cm): 2 Description: flap Depth: simple, single layer Local Anesthetic: lidocaine 1% Amount of anesthesia used (mL): 2 Pre-repair: wound explored, irrigated extensively and deep structures intact ====== Skin Level ====== Skin layer closed with: dermabond ====== Subcutaneous Layer ====== ====== Muscle Layer ====== ====== Tendon Layer ====== Medical Decision Making MDM Narrative Medical decision making narrative: 74-year-old presenting with a finger tip injury. Wound was glued with Dermabond. Patient given Tdap. Discharged. Vital Signs Vital Signs: Vital Signs Temperature 98.6 F 01/25/25 16:06 Pulse Rate 83 01/25/25 16:06 Respiratory Rate 16 01/25/25 16:06 Blood Pressure 167/105 H 01/25/25 16:06 Pulse Oximetry 100 01/25/25 16:06 Oxygen Delivery Room Air 01/25/25 16:06 Temperature 98.6 F 01/25/25 16:06 Pulse Rate 83 01/25/25 16:06 Respiratory Rate 16 01/25/25 16:06 Blood Pressure 167/105 H 01/25/25 16:06 Pulse Oximetry 100 01/25/25 16:06 Oxygen Delivery Room Air 01/25/25 16:06 Discharge Plan Discharge Clinical Impression: Laceration Patient Disposition: Home Condition: Stable Instructions: Antibiotic Form, Skin Adhesive Care (ED) Additional Instructions: You were seen in the ED for a finger laceration. The glue will fall off on its own. Return if you develop signs of infection like increased pain swelling or uncontrolled bleeding. Patient Language: Yoruba Prescriptions: No Action valacyclovir [Valtrex] 1 gram tablet 1,000 mg PO Q8H 7 Days Qty: 21 0RF fenofibrate nanocrystallized [Tricor] 145 mg Tablet 145 mg PO DAILY Follow-up/Referrals: Chung,Lynda Pollack DO [Primary Care Provider] -
[2025-01-25] MEDS: TETANUS,DIPHTHERIA,AC PERTUSSIS ADULT (0.5 ML) BOOSTRIX IM (17:17)
[2025-01-25 17:26] VITALS: BP 175/84; PULSE 82; RESP 16; TEMP 36.6; O2SAT 100
== END 2025-01-25 17:27 | disposition home or self-care (01) ==
PROVIDERS: Emergency Provider Emergency Medicine; PCP Internal Medicine
DX: S61.212A Laceration without foreign body of right middle finger without damage to nail, initial encounter (principal); Z23 Encounter for immunization; E78.00 Pure hypercholesterolemia, unspecified; E03.9 Hypothyroidism, unspecified; Z87.440 Personal history of urinary (tract) infections; W26.0XXA Contact with knife, initial encounter; Y93.G1 Activity, food preparation and clean up
CPT/HCPCS: 12001; 90471; 90715; 99282; J2003

== ENCOUNTER 2025-05-22 20:01 | Emergency (ER) | payer OTHER, SELFPAY ==
--- NOTE | ~2025-05-22 | CT_ITS ---
EXAMINATION: CTA chest PE protocol DATE: 05/22/2025 22:37 INDICATION: Rule out PE TECHNIQUE: Computed tomography angiography (CTA) of the chest was performed with 100 mL Omnipaque-350 intravenous contrast timed to evaluate the pulmonary arteries. Coronal maximum intensity projection 3D-reconstructions were created by the technologist. The dose-length product was 139.46 mGy-cm. COMPARISON: None. FINDINGS: No pulmonary emboli or thoracic aortic aneurysm/dissection. Heart size normal. No pericardial effusion or bulky lymphadenopathy. The lungs are clear. No acute process seen in the visualized upper abdomen or bony thorax. IMPRESSION: 1. No pulmonary emboli or gross acute intrathoracic process. NOTE: Preliminary radiology report provided by [facility] radiologist/physician. Reviewed, dictated and finalized at location A. ING COWS WORKER IMPRESSION: 1. No pulmonary emboli or gross acute intrathoracic process. NOTE: Preliminary radiology report provided by [facility] radiologist/physician.
--- NOTE | ~2025-05-22 | XR_ITS ---
EXAMINATION: XR chest 2V DATE: 05/22/2025 20:30 INDICATION: Chest pain TECHNIQUE: Frontal and lateral views of the chest were obtained. COMPARISON: Chest x-ray 05/26/2011 FINDINGS: Heart size is normal. Lungs are clear of acute processes. Liliana and mediastinum are normal. IMPRESSION: 1. No acute findings. Reviewed, dictated and finalized at location T. P TRUCK DRIVER IMPRESSION: 1. No acute findings.
--- NOTE | 2025-05-22 20:03 | ECG_ITS ---
Test Date: 2025-05-22 20:09:10 Measurements Intervals [place] Rate: 93 P: 63 AR: 158 QRS: 35 QRSD: 77 T: 20 QT: 298 QTc: 371 Interpretive Statements SINUS RHYTHM POSSIBLE LEFT ATRIAL ENLARGEMENT NONSPECIFIC ST & T-WAVE ABNORMALITY- ANTEROLAT/INF LEADS BORDERLINE ECG No previous ECG available for comparison Electronically Signed On 05-23-2025 06:09:17 LINUX ADMIN by Charan Izquierdo D.O.
[2025-05-22 20:13] VITALS: BP 181/77; PULSE 94; RESP 18; TEMP 37.2; O2SAT 99
[2025-05-22] MEDS: ASPIRIN 81 MG CHEWABLE TABLET 324 MG PO (20:38)
[2025-05-22 20:43] VITALS: BP 169/95; PULSE 84; RESP 13; O2SAT 98
[2025-05-22 20:46] LABS: Hematocrit 39.1 % (37.0-47.0); Hemoglobin 13.4 g/dL (12.0-15.0); Immature Granulocyte Percent A 0.5 % (0-0.5); Lymphocytes Absolute Auto 0.78 K/mm3 (0.9-3.2); Mean Corpuscular HGB Conc 34.3 g/dl (32-36); Mean Corpuscular Hemoglobin 30.7 pg (26-34); Mean Corpuscular Volume 89.5 fl (80-100); Nucleated Red Blood Cells Absolute Auto 0.000 K/mm3 (0.0-0.012); Nucleated Red Blood Cells Perc 0.0 % (0.0-0.2); Platelet Count Result 250 k/mm3 (150-375); Red Blood Count 4.37 M/mm3 (4.2-5.4); White Blood Count 8.4 K/mm3 (4.5-10.0)
[2025-05-22 20:59] LABS: Alanine Aminotransferase 23 U/L (6-35); Albumin Level 4.4 g/dL (3.5-5.1); Alkaline Phosphatase 96 U/L (38-126); Anion Gap 5 mmol/L (4-12); Aspartate Amino Transferase 37 U/L (14-36); Bilirubin,Total 0.6 mg/dL (0.2-1.3); Blood Urea Nitrogen 14 mg/dL (7-17); Calcium 9.5 mg/dL (8.4-10.2); Carbon Dioxide 25 mmol/L (22-30); Chloride 101 mmol/L (98-107); Estimated CRCL calculation 41 ml/min; Estimated Glomerular Filt Rate > 60; Glucose 130 mg/dL (65-110); Lipase 136 U/L (23-300); Potassium 3.7 mmol/L (3.4-5.0); Sodium 131 mmol/L (137-145); Total Protein 7.9 g/dL (6.3-8.2)
[2025-05-22 21:00] VITALS: BP 184/96; PULSE 88; RESP 17; TEMP 36.8; O2SAT 98
--- NOTE | 2025-05-22 21:00 | ED.CHESTPAIN ---
HPI - Chest Pain General Chief Complaint: Chest Pain Stated Complaint: Chest pain, back pain, fever Time Seen by Provider: 05/22/25 20:34 Source: patient and family Mode of arrival: ambulatory Limitations: no limitations History of Present Illness HPI narrative: Patient is a 74-year-old female presents to the emergency department complaining of chest pain. Patient notes that the pain started about 1 hour ago, was overall constant, sharp, with towards her back and also slightly toward her neck, denies any history of this pain in the past, notes that the pain is essentially resolved now. Notes that she has been ill recently with a URI like symptoms over the past few days. Has been taking qgtq-atj-mvsvvaz medications for this, denies any Sudafed use. Denies any history of heart disease. Denies any history of blood clots. Denies any sputum production. Denies any significant difficulty breathing. Denies history of high blood pressure or diabetes or use of cholesterol medications. Denies being a smoker. Denies any abnormal bowel movements or urinary discomfort. Denies any significant nausea. Related Data Home Medications ?Medication ?Instructions ?Recorded ?Confirmed ?Last Taken ?Type fenofibrate nanocrystallized 145 145 mg PO DAILY 05/11/19 10/15/23 Unknown History mg tablet (Tricor) Allergies Allergy/AdvReac Type Severity Reaction Status Date / Time Penicillins Allergy Severe Swelling Verified 10/15/23 16:01 of Lip/Tongue/Throat erythromycin base Allergy Intermediate VOMITING Verified 10/15/23 16:01 Sulfa (Sulfonamide Allergy Intermediate Vomiting Verified 10/15/23 16:01 Antibiotics) tramadol Allergy Intermediate Vomiting Verified 10/15/23 16:01 Review of Systems Review of Systems: A 10 system review of systems was completed on the patient and is negative except for what is stated in the HPI. Nursing and ancillary documentation was reviewed. [facility] Past Medical History Medical History Constipation Hypercholesterolemia Hypothyroidism Postmenopausal Urinary tract infection Exam Narrative: CONST: No acute distress. Well nourished. HENMT: Head is normocephalic and atraumatic. Moist mucous membranes. No posterior oropharynx erythema. EYES: No scleral icterus. No conjunctival injection or pallor. PERRL. NECK: No meningeal signs. RESP: Able to speak in full sentences. Normal respiratory effort. CTAB. CARDIO: Regular rate. Regular rhythm. 2+ DP and radial pulses bilaterally. GI: Nondistended. No tenderness to palpation. Soft. : No CVA tenderness to palpation. SKIN: No rashes or lesions noted on exposed skin. NEURO: Oriented x3. Moves all extremities. EXTREM/MSK/BACK: No pedal edema. PSYCH: Normal affect. Course Vital Signs Vital signs: Vital Signs Temperature 98.9 F 05/22/25 20:13 Pulse Rate 94 05/22/25 20:13 Respiratory Rate 18 05/22/25 20:13 Blood Pressure 181/77 H 05/22/25 20:13 Pulse Oximetry 99 05/22/25 20:13 Oxygen Delivery Room Air 05/22/25 20:13 Temperature 98.6 F 05/23/25 00:01 Pulse Rate 68 05/23/25 00:01 Respiratory Rate 21 H 05/23/25 00:01 Blood Pressure 153/91 H 05/23/25 00:01 Pulse Oximetry 96 05/23/25 00:01 Oxygen Delivery Room Air 05/22/25 20:13 MDM MDM Narrative Medical decision making narrative: Patient presents with the above complaint. Initial vitals are remarkable for elevated blood pressure. Physical examination as noted above. Plan discussed: laboratory analysis, EKG, imaging. Patient ordered nitro, patient is already taking 4 baby aspirins, continuous cardiac monitoring, continuous pulse oximetry. CT chest preliminary findings radiology interpretation is no evidence of central pulmonary embolism. Normal heart size. No pericardial effusion. No focal consolidation, pleural effusion or pneumothorax. On reassessment patient is resting comfortably appearing no acute distress, informed of all results, denies any chest pain at this time, overall feels well. Patient was reassessed at the bedside. No changes in physical exam. Patient is in no acute distress. The patient has remained stable throughout the entire ED visit. Counseled patient regarding diagnostic results and potential diagnosis. Anticipatory guidance provided. Patient instructed to follow up with PCP within 2-3 days. Patient counseled on: false reassurance from an emergency department evaluation; no current evidence of a medical emergency; return immediately for any new, recurrent, worsening, concerning, or refractory symptoms. Medications discussed with patient. Additional verbal and printed discharge instructions were given and discussed with the patient. Patient verbally acknowledges understanding of condition and discharge instructions. All questions were answered to the patient's satisfaction. Patient is in agreement with the plan of care. The patient is stable for discharge and was discharged without incident. Differential Diagnosis Differential Diagnosis: ACS, pneumonia, pneumothorax, pulmonary embolism, pericarditis, myocarditis, aortic dissection, GERD. Lab Data MDM Lab Attestation statement: I personally reviewed the patient's lab results. Lab results narrative: CBC is without any significant abnormalities. D-dimer is 1.11. Coags are otherwise within normal limits. Comprehensive metabolic panel reveals a sodium 131, glucose 130, AST of 37. BNP is 123. Initial troponin is less than 0.012. Lipase is 136. Influenza testing and RSV testing are negative. COVID testing is positive. Repeat troponin is less than 0.012. 05/22/25 20:39 05/22/25 20:39 Labs: Lab Results 05/22/25 05/22/25 Range/Units 20:39 23:36 WBC 8.4 (4.5-10.0) K/mm3 RBC 4.37 (4.2-5.4) M/mm3 Hgb 13.4 (12.0-15.0) g/dL Hct 39.1 (37.0-47.0) % MCV 89.5 (80-100) fl MCH 30.7 (26-34) pg MCHC 34.3 (32-36) g/dl RDW 14.6 H (11.5-14.5) % Plt Count 250 (150-375) k/mm3 MPV 8.4 (7.4-10.4) fl Immature Gran % (Auto) 0.5 (0-0.5) % Neut % (Auto) 78.6 H (45.5-73.1) % Lymph % (Auto) 9.3 L (18.3-44.2) % Sebastian % (Auto) 9.9 H (2.6-8.5) % Eos % (Auto) 1.2 (0-4.4) % Baso % (Auto) 0.5 (0.2-1.2) % Lymph # (Auto) 0.78 L (0.9-3.2) K/mm3 Sebastian # (Auto) 0.8 H (0.1-0.6) K/mm3 Eos # (Auto) 0.1 (0-0.3) K/mm3 Baso # (Auto) 0.0 (0.0-0.1) K/mm3 Abs Immat Gran (auto) 0.04 H (0.00-0.031) K/mm3 Absolute Neuts (auto) 6.6 (1.3-6.7) K/mm3 Absolute Nucleated RBC 0.000 (0.0-0.012) K/mm3 Nucleated RBC % 0.0 (0.0-0.2) % PT 12.6 (11.1-14.7) Seconds INR 0.9 APTT 31.4 (22.3-36.8) Seconds D-Dimer 1.11 H (<0.48) ug/mL Sodium 131 L (137-145) mmol/L Potassium 3.7 (3.4-5.0) mmol/L Chloride 101 (98-107) mmol/L Carbon Dioxide 25 (22-30) mmol/L Anion Gap 5 (4-12) mmol/L BUN 14 (7-17) mg/dL Creatinine 0.73 (0.7-1.0) mg/dL Estim Creat Clear Calc 41 ml/min Estimated GFR > 60 (59 - ) Glucose 130 H (65-110) mg/dL Calcium 9.5 (8.4-10.2) mg/dL Magnesium 1.9 (1.6-2.3) mg/dL Total Bilirubin 0.6 (0.2-1.3) mg/dL AST 37 H (14-36) U/L ALT 23 (6-35) U/L Alkaline Phosphatase 96 (38-126) U/L Troponin I < 0.012 < 0.012 (0.000-0.034) ng/mL NT-Pro-B Natriuret Pep 123 H (19.9-100) pg/mL Total Protein 7.9 (6.3-8.2) g/dL Albumin 4.4 (3.5-5.1) g/dL Lipase 136 (23-300) U/L Influenza A (RT-PCR) Negative (Negative) Influenza B (RT-PCR) Negative (Negative) RSV (RT-PCR) Negative (Negative) SARS-CoV-2 RNA (RT-PCR) Positive A (Negative) Imaging Data Radiologist's impression: ITS Impressions Chest X-Ray 05/22/25 20:37 IMPRESSION: 1. No acute findings. ECG Data EKG #1: Attestation: I personally reviewed and interpreted this ECG as follows: ECG completion date: 05/22/25 ECG completion time: 23:44 Interpretation: Rate of 65, rhythm sinus rhythm, axis is normal, no ST elevations or depressions, nonspecific T-wave abnormality. Discharge Plan Discharge Clinical Impression: COVID Chest pain Qualifiers: Chest pain type: unspecified Qualified Code(s): R07.9 - Chest pain, unspecified Patient Disposition: Home Condition: Stable Instructions: Antibiotic Form, Chest Pain (ED), COVID-19 (Coronavirus Disease 2019) (ED) Additional Instructions: Follow-up with your primary care physician the next 2-3 days for reassessment as you may benefit from further outpatient workup such as stress testing. Refrain from any significant strenuous activity until seen by your doctors. Rest and stay well-hydrated. Take wuce-mym-evcqkcy Tylenol and decongestants as needed. Return immediately to the emergency department for any new or concerning symptoms especially any emergent concerns for life, limb, eyesight. Patient Language: Lebanese Prescriptions: No Action valacyclovir [Valtrex] 1 gram tablet 1,000 mg PO Q8H 7 Days Qty: 21 0RF fenofibrate nanocrystallized [Tricor] 145 mg Tablet 145 mg PO DAILY Follow-up/Referrals: Chung,Lynda Pollack DO [Primary Care Provider, Unknown] - 3 Days Time of Disposition: 00:10 Quality HEART score for chest pain patients History: slightly suspicious ECG: non specific repolarization disturbance/LBTB/PM Age: > or = to 65 years Risk factors: no risk factors known Troponin: < or = to 1x normal limit Heart score: 3
[2025-05-22 21:04] LABS: INR 0.9; Prothrombin Time 12.6 Seconds (11.1-14.7)
[2025-05-22 21:05] LABS: Partial Thromboplastin Time 31.4 Seconds (22.3-36.8)
[2025-05-22 21:10] LABS: Troponin I < 0.012 ng/mL (0.000-0.034)
[2025-05-22] MEDS: NITROGLYCERIN SL 0.4 MG TABLET SUBLINGUAL (21:11)
[2025-05-22 21:21] LABS: Influenza A QL RT-PCR Negative (Negative); Influenza B QL RT-PCR Negative (Negative); RSV RNA, RT-PCR Negative (Negative); SARS-CoV-2 RNA PCR Positive (Negative)
[2025-05-22 21:24] LABS: Magnesium 1.9 mg/dL (1.6-2.3)
--- OUTSIDE RECORDS SUMMARY | 2025-05-22 21:26 | XMS_ITS | Clinical Summary ---
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
--- OUTSIDE RECORDS SUMMARY | 2025-05-22 21:26 | XMS_ITS | Patient Health Record ---
Author Organization [facility] Address [address] [place] [address] Support Name Relationship Address Phone Carole Crowley Guarantor Unknown [phone] Reason For Referral No Information Medications Medication [...] preservative free Unknown 04/21/2007 Administered migrated LegPatid= [id number] Date=04/12/2001 Vac= Influenza Tdap IM Intramuscular 03/09/2011 Administered Problems Problem Type SNOMED Code ICD Code Onset Dates Problem Status W/U Status Risk Notes Problem Shortness of breath (696378197) Shortness of breath (786.05) 2013 Active confirmed 09/14/2013 normal exam, Stress test negative Problem Hypothyroidism (31622284) Hypothyroidi sm, unspecified (E03.9) 2004 Active confirmed 09/08/2012 - TSH normal Problem Rheumatic mitral ai ve disease (48892795) Rheumatic mitral valve disease, unspecified (I05.9) 2007 Active confirmed 03/09/2011 - Echo and stress test, MVP Problem Non-neoplastic nevus (631406868) Nevus, non-neoplast ic (I78.1) Active confirmed Problem Irritable bowel syndrome (16540758) Irritable bowel syndrome without diarrhea (K58.9) 2004 Active confirmed 03/09/2011 - constipation pre-dominant Problem Rosacea (098867748) Rosacea, unspecified (L71.9) 2010 Active confirmed Problem Low back pain (557393066) Low back pain (M54.5) 2004 Active confirmed 09/08/2012 - comes and goes 03/09/2011 - history of right sciatica, managed with exercise. No surgery or injections, No mri Problem Disorder of bone (78958301) Other specified disorders of bone density and structure, unspecified site (M85.80) Active confirmed Problem Fatigue (47279150) Other fatigue (R53.83) 2004 Active confirmed 03/09/2011 - for years, better with levothyroxine Problem Pure hypercholesterolemia (703983449) Pure hypercholest erolemia, unspecified (E78.00) Active confirmed 09/08/2012 - controlled 191, 88, 61 none Plan Of Treatment No Information Insurance Providers Payer Name Payer Address Payer Phone Subscriber Number Group Number Insured Name Patient Relationship to Insured Coverage Start Date Coverage End Date [employer] [address] [place] [address] [id number] Carole Crowley Self - patient is the insured 4 [employer] Ppo [address] [place] [address] [id number] Daniel Crowley Spouse - patient is the spouse of the insured 1 [employer] Ppo [address] [place] [address] [id number] Carline Carole Self - patient is the insured 3 Medical (General) History Surgical History Surgery Date(Month/Year) ; 2011-03-08 Carpal tunnel release; 2011-03-08 Breast biopsy: abnormal cell s and followed by Dr Anguiano, Date of Procedure: 1998; 2011-03-08 herniorrhaphy; 2011-03-08 T&A; 2011-03-08 Bladder Surgery: Dr Efrem Granados, pre-cancerous cells on cysto, Date of Procedure: 2003; 2011-03-09
--- OUTSIDE RECORDS SUMMARY | 2025-05-22 21:26 | XMS_ITS | Patient Health Record ---
Author Organization [facility] Address [address] [place], [place] [id number] Care Team Providers Care Chief Marketing Officer Name Role Phone MICHAEL HERRERA Unavailable [phone] Lynda Wilkes Unavailable Unavailable Reason For Referral No Information Medications Medication SIG (Take, Route, Frequency, Duration) Notes Start Date End Date Status polyethylene glycol 3350 17077 MG Powder for Oral Solution [ClearLax] ORAL polyethylene glycol 3350 28976 MG Powder for Oral Solution [ClearLax]Original Medicationpolyethylene glycol 3350 91202 MG Powder for Oral Solution [ClearLax] *Reorder from [employer] for eRx and Interaction Alert 5 Active levothyroxine sodium 0.1 MG Oral Tablet ORAL levothyroxine sodium 0.1 MG Oral TabletOriginal Medicationlevothyroxine sodium 0.1 MG Oral Tablet *Reorder from [employer] for eRx and Interaction Alerts* 5 Active ciclopirox 80 MG/ML Topical Solution [Penlac Nail Lacquer] CUTANEOUS ciclopirox 80 MG/ML Topical Solution [Penlac Nail Lacquer]Original Medicationciclopirox 80 MG/ML Topical Solution [[place]lac Nail Lacquer] *Reorder from [employer] for eRx and Interaction Alerts* 5 Active Social History Social History Additional Details Category Social Info Options Details Migrated Social History Migrated Social History History of tobacco use : , Smoking Status : Never smoked Plan Of Treatment No Information Insurance Providers Payer Name Payer Address Payer Phone Subscriber Number Group Number Insured Name Patient Relationship to Insured Coverage Start Date Coverage End Date [employer]. [address] [place] [id number] GARCÍA GAMING Self - patient is the insured
--- OUTSIDE RECORDS SUMMARY | 2025-05-22 21:26 | XMS_ITS | Clinical Summary ---
Author Organization [facility] Address [address] [place] [address] Care Team Providers Care Special Officer Name Role Phone Lynda Wilkes DO Primary Care Provider +1- [phone] Allergies Active Allergy Reactions Criticality Noted Date Comments Penicillins Anaphylaxis High 05/19/2021 Shrimp Rash Medium 05/19/2021 Medications vitamin B complex (B COMPLEX 1 ORAL) 1 tablet Acti ve omega 4-iri-old-fish oil (Fish OiL) 100-160-1,000 mg capsule Take [...] Problem Noted Date Diagnosed Date COVID 05/18/2021 Encounters Date Type Department Care Team Description 04/04/2025 7:56 AM CDT - 04/04/2025 11:59 PM CDT Hospital Encounter [facility] [place] [facility] [address] [facility] [address] [facility] [place] [address] Screening mammogram, encounter for Discharge Disposition: Discharge to home or self care from Last 3 Months Surgical History Surgery Date Site/Laterality Comments BREAST BIOPSY Left Social History Tobacco Use Types Packs/Day Years Used Date Smoking Tobacco: Never Assessed Comments No Sex and Gender Information Value Date Recorded Sex Assigned at Not on file Legal Sex Female 1:37 AM CAMP COOK Gender Identity Not on file Sexual Orientation Not on file Obstetrics History Para Term AB IAB SAB Ectopic Multiple Livin g Live Births 2 2 2 Date Outcome GA Total Labor Labor/2nd/3rd Weight Sex Type Anes PTL Luisa A1 A5 Name Clin Term Term Last Filed Vital Signs Vital Sign Reading Time Taken Comments Blood Pressure 149/76 05/19/2021 10:40 AM CAMP COOK Pulse 61 05/19/2021 10:40 AM CAMP COOK Temperature 36.5 C (97.7 F) 05/19/2021 10:40 AM CAMP COOK Respiratory Rate 20 05/19/2021 10:4 0 AM CAMP COOK Oxygen Saturation 100% 05/19/2021 10: 40 AM CAMP COOK Inhaled Oxygen Concentration - - Weight 50.3 kg (110 lb 14.3 oz) 04/04/2025 8:09 AM CDT Height 152.4 cm (5') 04/04/2025 8:09 AM CDT Body Mass Index 21.66 04/04/2025 8:09 AM CDT Plan of Treatment Health Maintenance Due Date Last Done Comments Depression Screening 1948 Fall Risk Assessment 1950 Hepatitis C Screening 1950 Hepatitis B Screening 1966 Well Visit 65+ 2013 Pneumococcal vaccine 65+ (2 of 2 - PPSV23, PCV20, or PCV21) 09/06/2016 07/12/2016 Osteoporosis Screening-Bone Density Scan 10/10/2016 10/10/2014, 10/10/2014 Covid-19 Vaccine (3 - Modern a risk series) 08/29/2020 08/01/2020, 07/03/2020 DTaP/Tdap/Td Vaccine (2 - Td or Tdap) 03/09/2021 03/09/2011 Influenza Vaccine (#1) 2025 , 04/04/2019, 02/20/2018, Additional history exists Zoster Vaccine Completed 06/26/2018, 04/22/2018 Breast Cancer Screening-Mammogram Discontinued 04/04/2025, 02/02/2024, 01/12/2023, Additional history exists Procedures Procedure Name Priority Date/Time Associated Diagnosis Comments SCREENING MAMMOGRAM BILATERAL W PEDRO Schedule Routine, Read Routine (OP Routine) 04/04/2025 8:09 AM CDT Screening mammogram, encounter for DEXA AXIAL SKELETON BONE DENSITY 1 OR MORE SITES Routine 10/10/2014 1:56 PM CDT from Last 3 Months or Most Recently Relevant to Health Maintenance Results * Screening Mammogram Bilateral W Pedro (04/04/2025 8:09 AM CDT) Anatomical Region Laterality Modality Breast Bilateral Mammography Impressions 04/04/2025 8:55 AM CDT BI-RADS ATLAS category (overall): 2 - Benign There is no mammographic evidence of malignancy. A 1 year screening mammogram is recommended. The patient has been or will be contacted. We recommend annual screening mammography for women at average risk of breast cancer beginning at age 40, based on guidelines of the [employer] (ACR Practice Parameter for the Performance of Screening and Diagnostic Mammography) and [employer]. For women with and elevated risk of breast cancer, please refer to the ACR Practice Parameter for specific screening recommendations. The patient will be entered into a reminder system with a target due date of 1 year for her next screening exam. Narrative 04/04/2025 8:55 AM CDT Screening Mammogram Bilateral W Pedro: 04/04/25 The study was acquired using full field digital technology and interpreted from soft copy. 2D digital mammographic views, as well as 3D digital tomosynthesis were performed in the CC and MLO projections. CLINICAL: Screening mammogram, encounter for. No relevant medical history has been documented for this patient. No known family history of breast cancer. No comparisons were made when reading this study. BREAST TISSUE: The breasts are extremely dense, [...] Ibarra M.D. MD: 03:45 PM 03:45 PM BM [EOD] Narrative 10/10/2014 3:49 PM CDT EXAMINATION: [...] Ibarra M.D. MD: 03:45 PM 03:45 PM BM [EOD] Lynda Wilkes DO IMG DXA PROCEDURES Final R esult from Last 3 Months or Most Recently Relevant to Health Maintenance Insurance [facility] Care Teams Special Officer Relationship Specialty Start Date End Date Lynda Wilkes DO PCP - General 01/22/19
--- OUTSIDE RECORDS SUMMARY | 2025-05-22 21:26 | XMS_ITS | Clinical Summary ---
Author Organization [facility] Address [address] [place] [address] Care Team Providers Care A And P Mechanic Name Role Phone Lynda Wilkes DO Primary Care Provider Social History Tobacco Use Types Packs/Day Years Used Date Smoking Tobacco: Never Assessed Comments Unknown Sex and Gender Information Value Date Recorded Sex Assigned at Female 10/22/2024 9:48 AM CDT Legal Sex Female 9:44 AM QUALITY LIAISON Gender Identity Not on file Sexual Orientation Not on file Plan of Treatment Health Maintenance Due Date Last Done Comments Hepatitis C 1968 Annual Medicare Wellness Visit 2013 Pneumococcal Vaccine: 50+ Years (2 of 2 - PCV20 or PCV21) 07/12/2017 07/12/2016 DTaP, Tdap and Td Vaccines (2 - Td or Tdap) 03/09/2021 03/09/2011 RSV Immunization or 60+ Years (1 - 1-dose 75+ series) 11/02/2023 COVID-19 Vaccine (3 - 2024- season) 2025 08/01/2020, 07/03/2020 Influenza Adult (#1) 2025 03/17/2020, 04/04/2019, 02/20/2018, Additional history exists Dexa Scan (General) Completed 10/10/2014, 10/10/2014, 10/10/2014 Zoster Vaccines Completed 06/26/2018, 04/22/2018 Hepatitis A Vaccines Aged Out No long er eligible based on patient's age to complete this topic Meningococcal B Vaccine Aged Out No l onger eligible based on patient's age to complete this topic Meningococcal Vaccine Aged Out No daly ariadna eligible based on patient's age to complete this topic RSV Immunizations Under 20 Months Aged Out No longer eligible based on patient's age to complete this topic Insurance [employer] Care Teams A And P Mechanic Relationship Specialty Start Date End Date Lynda Wilkes DO [facility] [place] [id number] PCP - General INTERNAL MEDICINE 04/24/24
--- OUTSIDE RECORDS SUMMARY | 2025-05-22 21:26 | XMS_ITS | Data Portability ---
Author Organization [place] [facility] Address [address] [place] [address] Assessment No assessment recorded. Plan of Treatment Reminders Order Date Submit Date Provider Last Modified By Organization Details Last Modified Time Details Appointments None recorded. Lab None recorded. Referral None recorded. Procedures None recorded. Surgeries None recorded. Imaging XR, hip, unilateral, 2 or 3 view [email or web address] [place] [address], [address] [place], [address], 20:03:18 Medication Orders prednisone 20 mg tablet 2023 024 [id number], [address], [place], [address], 19:06:05 Patient TargetsNo targets recorded. Patient Instructions Encounter Date Encounter Id Patient Instructions Last Modified By Organization Details Last Modified Time 10/08/2023 [id number] osteoarthritis: care instructions Not available 10/08/2023 19:06:03 hip pain: care instructions Not available 10/08/2023 19:06:02 Discharge Instructions Not available 10/08/2023 19:06:03 Rest and ice the affected extremity several times a day. Follow up with orthopedics as needed. Not available 10/08/2023 19:05:58 Reason for Referral None Reported. Results Created Date Observation Date Name Description Value Unit Range Abnormal Flag Note LastModifiedBy Organization Detail LastModifiedTime 10/08/19 24 10/08/2023 XR, hip, unila teral , 2 or 3 view No observ ation record ed. [place] [address] [place], [address], 10/09/2023 12:29:57 10/08/19 XR, hip, unila teral , 2 or 3 view No observ ation record ed. [email or web address] [place] [address] [place], [address], 10/08/2023 20:48:05 Result Notes None recorded. Problems Name Problem SNOMED Code Status Onset Date Resolution Date Notes Provider Name and Address Organization Details Recorded Time Pain of right hip joint [id number] Active 2023 No known injury [facility] 18:20:49 Problem Notes None recorded. Procedures Surgical History Date Name Laterality Status Provider Name and Address Organization Details Recorded Time section completed [facility] 10/08/2023 18:21:27 Hernia Repair completed [facility] 10/08/2023 18:21:37 Carpal tunnel surgery completed [facility] 10/08/2023 18:21:49 Imaging Results None recorded. Procedure Notes None recorded. Medical Equipment None Reported. Allergies Allergen ID Allergen Name Allergen Category Reaction Reaction Severity Criticality Documentation Date Start Date Code Code System Note Provider Name and Address Organization Details Recorded Time 13589 Product containin g penicilli n (product) medicatio n Not available Not available Not available 10/08/2023 69677 8001 SNOMED [facility] 18:19:22 19778 erythromy yasmin medicatio n Not available Not available Not available 10/08/2023 4053 RxNorm [facility] 18:19:39 85101 tramadol medicatio n Not available Not available Not available 10/08/2023 96056 RxNorm Nini Edmond [facility] 18:19:48 Medications Name Sig Start Date Stop Date Status Note LastModified by Organization Details LastModified Time valacyclovi r 1 gram tablet active Not Available Not Available Not Available prednisone 20 mg tablet TAKE ONE TABLET BY MOUTH EVERY MORNING active Not Available Not Available No t Available valacyclovi r 500 mg tablet TAKE 1 TABLET BY MOUTH ONCE DAILY NEEDED active Not Available Not Available No t Available azelastine 137 mcg (0.1 %) nasal spray USE 1 SPRAY(S) IN EACH NOSTRIL TWICE DAILY 10/07 completed Not Available Not Available Not Available ipratropium bromide 21 mcg (0.03 %) nasal spray USE 2 SPRAY(S) IN EACH NOSTRIL ONCE DAILY FOR 30 DAYS 10/07 completed Not Available Not Available Not Available fenofibrate nanocrystal lized 145 mg tablet TAKE 1 TABLET BY MOUTH ONCE DAILY active Not Available Not Available No t Available Paxlovid 300 mg (150 mg x 2)-100 mg tablets in a dose pack TAKE 3 TABLETS TOGETHER (TWO 150 MG NIRMATREL VIR TABLETS AND ONE 100 MG RITONAVIR TABLET) BY MOUTH TWICE DAILY FOR 5 DAYS. 10/07 completed Not Available Not Available Not Available Vitals Date Recorded Heart rate Respiratory rate Oxygen saturation Body temperature Body height Body weight Systolic And Diastolic Provider Name and Address Organization Details Last Updated DateTime 4 75 /min 18 /min 98 % 98.3 [degF] 149.86 cm 20727.7 9 g 213/100 mm[Hg] Nini Edmond [facility] 4 18:18:07 Social History Question Answer Notes LastModified by Organizat ion Details LastModified Time Tobacco Smoking Status Never Smoker [facility]ini Edmond [facility] 10/08/2023 18:21:00 Alcohol Use None [email or web address] Information n ot available 10/08/2023 Sex: Unknown Functional Status None recorded. Mental Status None recorded. Family History Nothing Reported. Medical History Condition Response High Cholesterol Y Gynecological HistoryNo gynecological history recorded. Obstetrics History GPAL:G 0 P 0 0 0 0 Past Encounters Encounter ID Performer Location Encounter Start Date Encounter Closed Date Diagnosis/Indication Diagnosis SNOMED-CT Code Diagnosis ICD10 Code Diagnosis IMO Codes Diagnosis Note [id number] ALICIA Saucedo [place] [address] [place] [address] 10/08/2023 18:07:07 10/08/2023 20:03:17 Pain of hip region 60591766 M25.559 Osteoarthritis 627948128 M19.90 Health Concerns Section Related Observation LastModified by Organization Detai ls LastModified Time None Recorded Concern Status LastModified by Organization Details LastModified Time None Recorded Advance Directives Directive None Recorded Payers Insurance Date Sequence Insurance Name Policy Number Policy Braga Covered Member ID Braga Member ID Guarantor Name 10/12/2023 1 [facility] (MEDICARE REPLACEMENT/A DVANTAGE - PPO) Carole Corwley [id number] Carole Crowley Notes Date Note Type Note Provider Name and Address Organization Details Recorded Time 10/08/2023 text/html Hip(s)Reported b y PatientHPIFor location, patient reportsright. For quality, patient reportsthrobbing,dull , andconstant. For severity, patient reportsmoderate. For onset/duration, patient reportsfew hour(s) ago. For timing, patient reportsepisodic. For alleviating factors, patient reportssittingandrest (pain has significantly decreased since resting after shopping.). For aggravating factors, patient reportswalkingandweig htbearing. For associated symptoms, patient reportsno weakness,no numbness,no tingling,no swelling,no redness,no warmth,no ecchymosis,no catching/locking,no popping/clicking,no buckling,no grinding,no instability,no radiation down leg,no drainage,no fever,no chills,no weight loss, andno change in bowel/bladder habits. For previous surgery, patient reportsnone. For prior imaging, patient reportsnone. For previous injections, patient reportsnone. For previous pt, patient reportsnone. For work related, patient reportsno. For context, (started while walking for a long period of time while shopping carrying a heavy purse.). Julio Lyle [facility] [place] - [facility], [facility] 10/08/2023 19:08:32 OBGyn Episode No OBEpisode recorded.
--- OUTSIDE RECORDS SUMMARY | 2025-05-22 21:26 | XMS_ITS | Clinical Summary ---
Author Organization [facility] [employer] Address [address] [place] [address] Care Team Providers Care Health Policy Nurse Name Role Phone Patti Mejia MD Primary Care Provider [phone] Source Comments [facility],non-owned Affiliates and Associated Physician Practices is amultiple site organization consisting of ambulatory clinics and hospital sitesin [place] and [place]. This disclosure is being madepursuant to the Care Everywhere program and may not contain all information available regarding this patient. 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
--- OUTSIDE RECORDS SUMMARY | 2025-05-22 21:26 | XMS_ITS | Encounter Summary ---
Author Organization [facility] Address [address] [place] [address] Care Team Providers Care Childcare Attendant Name Role Phone Patti Mejia MD Primary Care Provider Encounter Details Date Type Department Care Team (Late st Contact Info) Description 10/01/2024 Lab Requisition [facility] - DermPath Lab 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] characteristic determined by the Dermatopathology Laboratory at [facility], directed by Dr. Milana Tapia. These tests need not be, and therefore are not, approved by the [place] Food and Drug Administration. The tests are used for clinical purposes. Billing Codes Specimen Charges Stain Charges 07896 1 2:47 PM CDT DERMATOPATHOLOGY LABORATORY Embedded Images 2:47 PM CDT DERMATOPATHOLOGY LABORATORY Pathology/Cytolo gy TISSUE SPECIMEN FROM SKIN / Unknown 09/28/2024 9:04 AM CDT 10/02/2024 6:50 AM CDT us Tunde Lyle MD LAB - PATHOLOGY/CYTOLOGY ASHE[facility] Final Result DERMATOPATHOLOGY LABORATORY [facility] - Department of Dermatology [facility] [address] [place] [address], [address] [phone] documented in this encounter Visit Diagnoses Diagnosis Neoplasm of uncertain behavior of skin documented in this encounter Care Teams Childcare Attendant Relationship Specialty Start Date End Date Patti Mejia MD PCP - General 08/20/08 documented as of this encounter
[2025-05-22 21:33] LABS: NT Pro B Type Natriuretic Pept 123 pg/mL (19.9-100)
[2025-05-22 22:00] VITALS: BP 140/85; PULSE 80; RESP 13; TEMP 36.9; O2SAT 95
[2025-05-22 23:16] VITALS: BP 133/82; PULSE 72; RESP 18; O2SAT 98
[2025-05-22 23:31] VITALS: BP 145/85; PULSE 74; RESP 23; O2SAT 99
--- NOTE | 2025-05-22 23:32 | ECG_ITS ---
Test Date: 2025-05-22 23:44:27 Measurements Intervals [place] Rate: 65 P: 28 TN: 171 QRS: 32 QRSD: 89 T: 5 QT: 353 QTc: 369 Interpretive Statements SINUS RHYTHM BORDERLINE ST-T WAVE ABNORMALITY- INFERIOR LEADS BORDERLINE ECG Compared to ECG 05/22/2025 20:09:10 NO SIGNIFICANT CHANGE Electronically Signed On 05-23-2025 06:11:13 PUBLIC HEALTH AIDE by Charan Izquierdo D.O.
[2025-05-23 00:01] VITALS: BP 153/91; PULSE 68; RESP 21; TEMP 37; O2SAT 96
[2025-05-23 00:08] LABS: Troponin I < 0.012 ng/mL (0.000-0.034)
[2025-05-23 00:16] VITALS: BP 153/91; PULSE 78; RESP 16; O2SAT 98
== END 2025-05-23 00:17 | disposition home or self-care (01) ==
PROVIDERS: Emergency Medicine; Emergency Provider Student in an Organized Health Care Education/Training Program; PCP Internal Medicine
DX: U07.1 COVID-19 (principal); R07.9 Chest pain, unspecified; E03.9 Hypothyroidism, unspecified
CPT/HCPCS: 36415; 71046; 71275; 80053; 83690; 83735; 83880; 84484; 85025; 85380; 85610; 85730; 87637; 93005; 99284; A9270; Q9967